=== PATIENT | female | born 1940 | race Caucasian/White ===

== ENCOUNTER → 2017-11-11 | Day surgery (SDC) | payer MEDICARE ==
[~2017-11-11] MED LIST: BIOTCAP PO; BUPIVACAINE HCL PF 0.5% 30 ML VIAL ONE; CITA20TA4 PO; D-3-50003 PO; FOLI400T PO; IRBE300T13 PO; LIDOCAINE HCL 1% 30 ML VIAL INFIL ONE; MEPERIDINE HCL 50 MG/ML VIAL IV ONE; MIDAZOLAM HCL 2 MG/2 ML VIAL IV ONE; NAPR1TAB98 PO; OMEG100010 PO; OPCOSOL EACH EYE; PRAV40TA2 PO; PROPOFOL 200 MG/20 ML AMP IV ONE; SODIUM CHLORIDE 0.9% 10 ML VIAL ONE; VITACAP7 PO; [UNRECOGNIZED DRUG - CODE] EACH EYE; methylPREDNISolone ACETATE 40 MG/ML VIAL I-ARTICULR ONE
--- NOTE | 2017-11-11 08:56 | M6 ---
cc: Ajay Jauregui MD DATE: 11/11/2017 DATE OF : 1940 PROCEDURE PERFORMED: Radiofrequency ablation left L5-S1, left S1, left S2 and left S3. History and physical was completed and signed. Consent was signed. Procedure site was marked. Medications were listed and reconciled. Pain score was recorded. Allergies were noted. Time out was taken. Fluoroscopy time was recorded where applicable. Sedation was administered or directed by Dr. Jauregui. The patient was given oxygen. The patient was monitored by a registered nurse. Total procedure time was greater than 15 minutes. PROCEDURE NOTE: IV was started. Blood pressure cuff pulse oximeter and EKG were applied. The patient was placed in the prone position on a Napoleon table, sedated with small amounts of Versed and propofol titrated to effect. Vital signs were monitored and remained stable throughout the procedure. The sacral area was prepped with alcohol and 10% Betadine solution and draped with sterile drapes. Fluoroscopy was used to visualize the posterior joint line of the left sacroiliac joint. The skin was infiltrated with 1% Xylocaine, using a 27-gauge needle. Then, 17-gauge introducer needles were placed sequentially from L5-S1 sacral ala along the posterior joint line of the left sacroiliac joint and 6 thermal lesions were made at 60 degrees Centigrade x2 minutes and 30 seconds at the above-mentioned locations. This was followed by injection of a small amount of Depo-Medrol for a total of 40 mg of Depo-Medrol. Following the procedure, the patient was taken to the recovery room with stable vital signs, neurologically intact. MD BAYRON Mccauley/HECTOR , 08:22 AM , 08:55 AM
== END | disposition home or self-care (01) ==
LOC: PHSDC 06:26
PROVIDERS: ATTEND Pain Medicine Interventional Pain Medicine
DX: M54.5 Low back pain (principal)
CPT/HCPCS: 64635; 64636; 99152; 99153; J1030; J2175; J2250